=== PATIENT | female | born 1980 | race Caucasian/White ===

== ENCOUNTER 2017-10-22 16:14 | Outpatient (CLI) | payer OTHER ==
--- NOTE | 2017-10-22 17:43 | RAD ---
LEFT HAND: 10/22/17 Three views. HISTORY: Pain to left fifth finger. Carpals are normally aligned. Metacarpals and phalanges appear intact. No fracture or acute abnormali ty. The MCP and IP joints are unremarkable. No evidence of arthropathy. IMPRESSION: No acute findings. POS: [facility]
== END 2017-10-22 16:15 | disposition home or self-care (01) ==
LOC: NAV RAD 16:14
PROVIDERS: ATTEND Family Medicine
DX: M79.642 Pain in left hand (principal)